=== PATIENT | female | born 1945 | race Caucasian/White ===

== ENCOUNTER → 2020-12-07 12:54 | Outpatient (CLI) | payer MEDICARE, SELFPAY ==
--- NOTE | ~2020-12-07 | DEXA_ITS ---
Bone Density Report Name: Kathy Wang Age: 75 Sex: Female Ethnicity: White Date of : 1945 Indication: osteopenia; height loss; prior fracture; hysterectomy; postmenopausal Referring Provider: SANDEEP SOLOMON Study: Bone densitometry was performed. Exam Date: December 07, 2020 Accession number: [id number] Bone Density: Region BMD T-score Z-score Classification Femoral Neck (Left) 0.728 -1.1 1.0 Osteopenia Total Hip (Left) 0.866 -0.6 1.1 Normal Femoral Neck (Right) 0.726 -1.1 1.0 Osteopenia Total Hip (Right) 0.845 -0.8 1.0 Normal Total Hip Mean 0.856 -0.7 1.1 Normal World Health Organization criteria for BMD impression classify patients as: Normal (T-score at or above -1.0), Osteopenia (T-score between -1.0 and -2.5), or Osteoporosis (T-score at or below -2.5). 10-year Fracture Risk: FRAX not reported because: Prior hip or vertebral fracture Previous Exams: Region Exam Age BMD T-score BMD Change BMD Change Date g/cm2 vs Baseline vs Previous Total Hip(Left) 12/07/2020 75 0.866 -0.6 -0.048* 0.023 05/21/2018 73 0.842 -0.8 -0.072* -0.070* 11/10/2013 68 0.912 -0.2 -0.001 -0.001 02/04/2011 65 0.914 -0.2 Total Hip(Right) 12/07/2020 75 0.845 -0.8 -0.035* 0.039* 05/21/2018 73 0.806 -1.1 -0.074* -0.083* 11/10/2013 68 0.888 -0.4 0.009 0.009 02/04/2011 65 0.880 -0.5 *Denotes significance at 95% confidence level, LSC for Total Hip = 0.027 g/cm2 Clinical Information Provided by Patient: Have had a previous hip or vertebral fracture Has had a low trauma fracture Has used the following medications: Vitamin D, Calcium Has the following medical conditions: Hysterectomy, Levothyroxine Patient maximum height was 61.5 Menopause Age: 47 No regular weight bearing exercise Does not regularly consume dairy products Drinks caffeinated beverages Onset of menses at age 14 Number of children 3 Impression: The patient has low bone mass, based on the Left Femoral Neck T-score. The patient has risk factors, including: previous fracture. No significant bone loss was observed. Discussion: INCREASED RISK OF FRACTURE DUE TO HISTORY OF FRACTURE. The patient's previous fracture puts the patient at high risk of a future fracture. In untreated patients, the risk of osteoporotic fracture increases approximately two-fold for each 1.0 SD decrease in T-score. Low bone density is not the only r
--- NOTE | ~2020-12-07 | MM_ITS ---
EXAMINATION: MM screening [facility] BI w [facility] HISTORY: Screening TECHNIQUE: Craniocaudal and mediolateral oblique 3-D tomosynthesis images were obtained and synthetic 2-D images were generated. CAD analysis was submitted and interpreted. COMPARISON: Comparison to multiple prior studies sequentially, with oldest reviewed study dated 05/2013. BREAST PARENCHYMAL COMPOSITION: There are scattered areas of fibroglandular density. FINDINGS: There is no evidence of suspicious mass, calcification, or architectural distortion to sugg est malignancy in either breast. There has been no suspicious interval change. IMPRESSION: 1. No mammographic evidence of malignancy. 2. Recommend routine screening mammography in one year. BI-RADS Category 1: Negative Reviewed, dictated and finalized at location A.
== END ==
PROVIDERS: Visit Provider Obstetrics & Gynecology
DX: Z12.31 Encounter for screening mammogram for malignant neoplasm of breast (principal); Z78.0 Asymptomatic menopausal state; M85.89 Other specified disorders of bone density and structure, multiple sites
CPT/HCPCS: 77063; 77067; 77080

== ENCOUNTER → 2022-04-25 11:46 | Outpatient (CLI) | payer MEDICARE, SELFPAY ==
--- NOTE | ~2022-04-25 | US_ITS ---
EXAMINATION: US thyroid DATE: 04/25/2022 12:08 INDICATION: Hypothyroidism, unspecified. TECHNIQUE: Multiple ultrasound images of the thyroid were obtained. COMPARISON: None. FINDINGS: The right thyroid lobe measures 4.8 x 1.9 x 1.8 cm. The left thyroid lobe measures 3.8 x 2.3 x 1.7 c m. The thyroid is diffusely hypoechoic with coarsened echotexture and increased vascularity. In the right thyroid lobe, there is a 10 mm solid, hypoechoic, wider than tall nodule with smooth margin wit hout echogenic foci (TI-RADS TR4). IMPRESSION: 1. Heterogeneous, hypervascular thyroid, consistent with chronic lymphocytic (Sallie) thyroiditis. 2. 10 mm right thyroid nodule. Thyroid ultrasound is recommended in one year. Reviewed, dictated and finalized at location A. L MECHANIC IMPRESSION: 1. Heterogeneous, hypervascular thyroid, consistent with chronic lymphocytic (H ashimoto) thyroiditis. 2. 10 mm right thyroid nodule. Thyroid ultrasound is recommended in one year.
--- NOTE | ~2022-04-25 | MM_ITS ---
EXAMINATION: MM screening [facility] BI w [facility] HISTORY: Screening mammogram TECHNIQUE: Craniocaudal and mediolateral oblique 3-D tomosynthesis images were obtained and synthetic 2-D images were generated. CAD analysis was submitted and interpreted. COMPARISON: 12/07/2020 bilateral screening mammogram 05/21/2018 bilateral screening mammogram 02/28/2016 bilateral screening mammogram BREAST PARENCHYMAL COMPOSITION: There are scattered areas of fibroglandular density. FINDINGS: There is no evidence of suspicious mass, calcification, or architectural distortion to sugg est malignancy in either breast. There has been no suspicious interval change. IMPRESSION: 1. No mammographic evidence of malignancy. 2. Recommend routine screening mammography in one year. BI-RADS Category 1: Negative Reviewed, dictated and finalized at location A. NDANT ARCADE
== END ==
PROVIDERS: PCP Internal Medicine; Visit Provider Internal Medicine
DX: Z12.31 Encounter for screening mammogram for malignant neoplasm of breast (principal); E03.9 Hypothyroidism, unspecified; E04.1 Nontoxic single thyroid nodule
CPT/HCPCS: 76536; 77063; 77067

== ENCOUNTER 2023-12-23 14:14 | Outpatient (CLI) | payer MEDICARE, SELFPAY ==
--- NOTE | ~2023-12-23 | MM_ITS ---
EXAMINATION: MM screening [facility] w [facility] HISTORY: Screening TECHNIQUE: Craniocaudal and mediolateral oblique 3-D tomosynthesis images were obtained and synthetic 2-D images were generated. CAD analysis was submitted and interpreted. COMPARISON: Comparison to multiple prior studies sequentially, with oldest reviewed study dated 12/08. BREAST PARENCHYMAL COMPOSITION: Not dense: There are scattered areas of fibroglandular density. FINDINGS: There are developing nodular asymmetries in the upper outer quadrant of both breasts. There are no suspicious calcifications. IMPRESSION: 1. Developing nodular asymmetries bilaterally. 2. Additional mammographic views and possible breast ultrasound are recommended. BI-RADS Category 0: Incomplete: Needs additional imaging evaluation. Reviewed, dictated and finalized at location B. IMPRESSION: 1. Developing nodular asymmetries bilaterally. 2. Additional mammographic views and possible breast ultrasound are recommended . BI-RADS Category 0: Incomplete: Needs additional imaging evaluation.
== END 2023-12-23 14:15 | disposition home or self-care (01) ==
LOC: MICIMG 14:15
PROVIDERS: PCP Internal Medicine; Visit Provider Internal Medicine
DX: Z12.31 Encounter for screening mammogram for malignant neoplasm of breast (principal); R92.8 Other abnormal and inconclusive findings on diagnostic imaging of breast
CPT/HCPCS: 77063; 77067

== ENCOUNTER 2024-01-19 07:37 | Outpatient (CLI) | payer MEDICARE, SELFPAY ==
--- NOTE | ~2024-01-19 | MM_ITS ---
EXAMINATION: MM diagnostic [facility] BI w [facility] HISTORY: Bilateral asymmetries TECHNIQUE: Additional 3-D tomosynthesis images of the breasts were performed and synthetic 2-D images were generated. CAD analysis was submitted and interpreted. COMPARISON: 12/23/2023, 04/25/2022, 12/07/2020 BREAST PARENCHYMAL COMPOSITION:Not Dense. There are scattered areas of fibroglandular density. FINDINGS: Spot compression views demonstrate no persistent mass lesion or distortion. No suspicious m ammographic calcifications. IMPRESSION: No mammographic evidence for malignancy. BI-RADS Category 1: Negative Reviewed, dictated and finalized at location . ITORY REPRESENTATIVE
== END 2024-01-19 07:38 | disposition home or self-care (01) ==
LOC: MICIMG 07:38
PROVIDERS: PCP Internal Medicine; Visit Provider Internal Medicine
DX: R92.8 Other abnormal and inconclusive findings on diagnostic imaging of breast (principal)
CPT/HCPCS: 77062; 77066; G0279

== ENCOUNTER 2024-11-09 10:08 | Outpatient (CLI) | payer MEDICARE, SELFPAY ==
--- OUTSIDE RECORDS SUMMARY | 2018-01-20 11:00 | XMS_ITS | Encounter Summary ---
Author Organization [facility] Healthcare Address [address] [place] [address] Care Team Providers Care Blueprint Engineer Name Role Phone Concetta Mera MD Primary Care Provide r Encounter Details Date Type Department Care Team (Late st Contact Info) Description 01/20/2018 10:00 AM [facility] Hospital Encounter [facility] ADMIT [address] [place] [address] Shlomo Hoyt MD [address] [address] Social History Tobacco Use Types Packs/Day Years Used Date Smoking Tobacco: Never Smokeless Tobacco: Never Alcohol Use Standard Drinks/Week Comments No 0 (1 standard drink = 0.6 oz pur e alcohol) OASIS D0700: Social Isolation Answer Da te Recorded Frequency of experiencing loneliness or isolatio n Never 09/07/2024 OASIS A1250: Transportation Answer Date Recorded Lack of Transportation (Medical) No 09/07/2024 Lack of Transportation (Non-Medical) No 09/07/2024 Patient Unable or Declines to Respond No 09/07/2024 OASIS B1300: Health Literacy Answer Kristofer e Recorded Frequency of needing help to read materials from doctor or pharmacy Never 09/07/2024 AUDIT-C Answer Date Recorded Q1: How often do you have a drink containing alcohol? Never 10/13/2024 Q2: How many drinks containi ng alcohol do you have on a typical day when you are drinking? Patient does not drink Q3: How often do you have si x or more drinks on one occasion? Never 10/13/2024 Personal Safety Answer Date Recorded Have you ever been in or are you currently in a harmful physical or emotional relationship or is someone making you feel afraid or unsafe? Denies 07/24/2024 Comments No Sex and Gender Information Value Date Recorded Sex Assigned at Not on file Legal Sex Female 3:57 AM PLASTIC WELDER Gender Identity Not on file Sexual Orientation Not on file documented as of this encounter Functional Status * AUDIT-C Score Answer Date of Assessment Author 0 10/13/2024 11:43 AM Nitza Hameed RN * Question Answer Date of Assessment Author Q1: How often do you have a drink containing alcohol? Never 10/13/2024 11:43 AM Kelsy Hameed RN Q2: How many drinks containing alcohol do you have on a typical day when you are drinking? Patient does not drink 10/13/2024 11:43 AM Nitza Hameed RN Q3: How often do you have six or more drinks on one occasion? Never 10/13/2024 11:43 AM Kelsy Hameed RN documented as of this encounter Plan of Treatment Not on file documented as of this encounter Procedures Procedure Name Priority Date/Time Associated Diagnosis Comments BIOPSY DEEP BONE IP Routine 01/21/2018 11:0 6 AM PLASTIC WELDER documented in this encounter Results * IR Biopsy Deep Bone (01/21/2018 11:06 AM PLASTIC WELDER) Anatomical Region Laterality Modality Body N/A Radio Fluoroscop y 01/21/2018 11:4 2 AM PLASTIC WELDER Impressions 01/21/2018 12:13 PM PLASTIC WELDER 1. T9-T10 endplates/disc biopsy under fluoroscopic guidance. The bone and soft tissue specimens were sent to microbiology and surgical pathology. Dictated by: Jani Brown M.D. Electronically signed by: Enrrique Mccormick MD, PHD Narrative 01/21/2018 12:13 PM PLASTIC WELDER EXAMINATION: T9-T10 bone/disc disc biopsy under fluoroscopic guidance HISTORY: 72 year old female with thoracic spine posterior instrumented fusion with destructive T9-T10 changes concerning for infection. ATTENDING PRESENCE: Dr. Enrrique Mccormick MD, PHD, the attending radiologist, was present from the beginning to the end of the procedure. SEDATION: Conscious sedation was administered under the attending physician's direction and continuous monitoring by a trained nurse specialist who was independent from those actually performing the procedure. Total monitored sedation time was 35 minutes. During the course of the procedure, the patient received Fentanyl 100 mcg and Versed 2 mg IV. TECHNIQUE: The risks, benefits and alternatives were discussed and informed consent was obtained. Prior to beginning the procedure, Rowland Protocol was performed to confirm the patient's identity and the planned procedure. Sterile barriers used during the procedure included cap, mask, hand hygiene, sterile gloves, and sterile drape. Chloraprep was used for cutaneous antisepsis. The patient was placed supine on the fluoroscopy table. The biopsy site was localized with fluoroscopy. A 10 mL of a 1:1 mixture of 0.25% bupivacaine and 1% lidocaine was injected for subcutaneous and periosteal anesthesia. An 10-gauge/12-gauge On-Control coaxial biopsy needle was inserted into the T10 vertebral body via a right transpedicular approach utilizing fluoroscopic guidance. Appropriate needle position was confirmed with fluoroscopy. Two bone specimens of 1-2 cm in length were obtained. Subsequently a Bard 14-gauge soft tissue biopsy needle was advanced into T9-T10 bone/disc space with four 1-2 cm soft tissue specimens obtained. The needle was removed and the skin was cleansed with hydrogen peroxide. Dermabond was placed at the needle entry site. There were no complications of the procedure. ESTIMATED BLOOD LOSS: None CONDITION: Stable condition. DISCHARGED TO: Patient Care Division FINDINGS: Fluoroscopic imaging demonstrates thoracic posterior instrumented fusion with the bone and soft tissue biopsy needles in appropriate needle position. Procedure Note Enrrique Mccormick MD PhD - 01/21/2018 EXAMINATION: T9-T10 bone/disc disc biopsy under fluoroscopic guidance HISTORY: 72 year old female with thoracic spine posterior instrumented fusion with destructive T9-T10 changes concerning for infection. ATTENDING PRESENCE: Dr. Enrrique Mccormick MD, PHD, the attending radiologist, was present from the beginning to the end of the procedure. SEDATION: Conscious sedation was administered under the attending physician's direction and continuous monitoring by a trained nurse specialist who was independent from those actually performing the procedure. Total monitored sedation time was 35 minutes. During the course of the procedure, the patient received Fentanyl 100 mcg and Versed 2 mg IV. TECHNIQUE: The risks, benefits and alternatives were discussed and informed consent was obtained. Prior to beginning the procedure, Rowland Protocol was performed to confirm the patient's identity and the planned procedure. Sterile barriers used during the procedure included cap, mask, hand hygiene, sterile gloves, and sterile drape. Chloraprep was used for cutaneous antisepsis. The patient was placed supine on the fluoroscopy table. The biopsy site was localized with fluoroscopy. A 10 mL of a 1:1 mixture of 0.25% bupivacaine and 1% lidocaine was injected for subcutaneous and periosteal anesthesia. An 10-gauge/12-gauge On-Control coaxial biopsy needle was inserted into the T10 vertebral body via a right transpedicular approach utilizing fluoroscopic guidance. Appropriate needle position was confirmed with fluoroscopy. Two bone specimens of 1-2 cm in length were obtained. Subsequently a Bard 14-gauge soft tissue biopsy needle was advanced into T9-T10 bone/disc space with four 1-2 cm soft tissue specimens obtained. The needle was removed and the skin was cleansed with hydrogen peroxide. Dermabond was placed at the needle entry site. There were no complications of the procedure. ESTIMATED BLOOD LOSS: None CONDITION: Stable condition. DISCHARGED TO: Patient Care Division FINDINGS: Fluoroscopic imaging demonstrates thoracic posterior instrumented fusion with the bone and soft tissue biopsy needles in appropriate needle position. IMPRESSION: 1. T9-T10 endplates/disc biopsy under fluoroscopic guidance. The bone and soft tissue specimens were sent to microbiology and surgical pathology. Dictated by: Jani Brown M.D. Electronically signed by: Enrrique Mccormick MD, PHD [facility] Pedro Hoyt MD IMG IR PROCEDURES Final Re sult documented in this encounter Visit Diagnoses Not on filedocumented in this encounter Care Teams Blueprint Engineer Relationship Specialty Start Date End Date Concetta Mera MD [address] [address] PCP - General Internal Medicine 12/31/17 documented as of this encounter
--- NOTE | ~2024-11-09 | DEXA_ITS ---
Bone Density Report Name: ALYX CHRISTIAN Age: 79 Sex: Female Ethnicity: White Date of : 1945 Indication: postmenopausal; screening for osteoporosis; height loss; prior fracture; hysterectomy; Referring Provider: JOSE, ARIADNA Study: Bone densitometry was performed. Exam Date: November 09, 2024 Accession number: [id number] Bone Density: Region BMD T-score Z-score Classification Femoral Neck (Left) 0.708 -1.3 1.0 Osteopenia Total Hip (Left) 0.860 -0.7 1.3 Normal Femoral Neck (Right) 0.698 -1.4 0.9 Osteopenia Total Hip (Right) 0.799 -1.2 0.8 Osteopenia Total Hip Mean 0.829 -1.0 1.1 Normal World Health Organization criteria for BMD impression classify patients as: Normal (T-score at or above -1.0), Osteopenia (T-score between -1.0 and -2.5), or Osteoporosis (T-score at or below -2.5). 10-year Fracture Risk: FRAX not reported because: Prior hip or vertebral fracture Clinical Information Provided by Patient: Have had a previous hip or vertebral fracture Has had a low trauma fracture Has used the following medications: Vitamin D, Calcium Has the following medical conditions: Hysterectomy Patient maximum height was 61.5 Menopause Age: 49 No regular weight bearing exercise Does not regularly consume dairy products Drinks caffeinated beverages Onset of menses at age 15 Number of children 3 Impression: The patient has low bone mass, based on the Right Femoral Neck T-score. The patient has risk factors, including: previous fracture. Discussion: INCREASED RISK OF FRACTURE DUE TO HISTORY OF FRACTURE. The patient's previous fracture puts the patient at high risk of a future fracture. In untreated patients, the risk of osteoporotic fracture increases approximately two-fold for each 1.0 SD decrease in T-score. Low bone density is not the only risk factor for fracture; also consider factors such as patient's age, frailty or poor health, risk of falling, risk of injury, previous osteoporotic fracture, family history of osteoporosis, cigarette smoking, low body weight, etc. Not everyone with a low trauma fracture has osteoporosis; osteomalacia and other metabolic bone disorders should also be considered. Patients who have osteoporosis should be evaluated for specific diseases and conditions (secondary causes) that may cause or contribute to bone loss and fracture risk. National Osteoporosis Foundation (NOF) recommends pharmacologic intervention for patients with a prior hip or vertebral fracture regardless of BMD T-score. The patient should follow a healthful lifestyle (good nutrition with adequate calcium and vitamin D, and appropriate weight-bearing exercise). Follow-Up: Consider a repeat BMD and Vertebral Fracture Assessment (VFA) exam in 2 years or sooner if medically necessary, to reassess this patient's status. Reported by: KOREY on 11/09/2024 2:33:00 PM. Reviewed, dictated and finalized at location A.
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
--- OUTSIDE RECORDS SUMMARY | 2024-11-09 10:38 | XMS_ITS | Clinical Summary ---
Author Organization [facility] Address [address] [place] [address] Care Team Providers Care Meat Boner Name Role Phone Concetta Mera MD Primary Care Provide r Efraín Garcia MD Unavailable [phone] Allergies Active Allergy Reactions Criticality Noted Date Comments Sulfa (Sulfonamide Antibiotics) Rash Medium Sulfasalazine Itching Low 05/17/2009 Medications ferrous sulfate 325 mg (65 mg of elemental iron) tabletIndicatio ns:Iron Deficiency Anemia Take 65 mg of elemental iron by mouth every morning Active sertraline (ZOLOFT) 25 mg tabletIndicatio ns:depression Take 25 mg by mouth every morning Active rosuvastatin (CRESTOR) 20 mg tabletIndicatio ns:hyperlipidem ia Take 20 mg by mouth every morning Active telmisartan (MICARDIS) 80 mg tabletIndicatio ns:hypertension Take 80 mg by mouth every morning Active ergocalciferol (VITAMIN D) 50,000 unit capsuleIndicati ons:Vitamin D Deficiency Take 50,000 Units by mouth every 2 (two) weeks 2 Active acetaminophen (TYLENOL) 500 mg tabletIndicatio ns:Pain Take 2 tablets (1,000 mg total) by mouth every 8 (eight) hours as needed for pain 60 tablet 5 Active baclofen (LIORESAL) 10 mg tabletIndicatio ns:Muscle Spasticity of Spinal Origin Take 1 tablet (10 mg total) by mouth 3 (three) times a day for 10 days 30 tablet 5 Active ibuprofen (ADVIL,MOTRIN) 600 mg tabletIndicatio ns:Anti-inflamm atory Take 1 tablet (600 mg total) by mouth every 8 (eight) hours as needed for pain 30 tablet 5 Active lidocaine (ASPERCREME) 4 % adhesive patch,medicated Indications:Pos therpetic Neuralgia Place 1 patch on the skin daily for 12 hours 15 patch 5 Active polyethylene glycol (MIRALAX) 17 gram packetIndicatio ns:constipation Take 1 packet (17 g total) by mouth daily 30 packet 5 Active senna-docusate (PERICOLACE) 8.6-50 mgIndications:c onstipation Take 1 tablet by mouth 2 (two) times a day 30 tablet 5 Active oxyCODONE (ROXICODONE) 5 mg immediate release tabletIndicatio ns:Pain Take 1 tablet (5 mg total) by mouth every 4 (four) hours as needed for pain 20 tablet 5 Active ondansetron (ZOFRAN) 4 mg tabletIndicatio ns:nausea Take 1 tablet (4 mg total) by mouth 4 (four) times a day as needed for nausea 20 tablet 5 Active calcium carb,gluc/mag gluc,ox (CALCIUM MAGNESIUM ORAL)Indication s:health Take 1 tablet by mouth daily. calcium 1000 mg, magnesium 400mg, zinc 15mg, vitamin d 15mcg Indications: health Active esomeprazole DR (NexIUM) 20 mg capsuleIndicati ons:Stress Ulcer Prophylaxis Take 20 mg by mouth daily. Indications: Stress Ulcer Prophylaxis Active levothyroxine (SYNTHROID) 50 mcg tabletIndicatio ns:hypothyroidi sm Take 50 mcg by mouth daily. Indications: a condition with low thyroid hormone levels Active cyanocobalamin (Vitamin B-12) 1,000 mcg tabletIndicatio ns:Prevention of Vitamin B12 Deficiency Take 1,000 mcg by mouth daily. Indications: prevention of vitamin B12 deficiency Active baclofen (LIORESAL) 10 mg tabletIndicatio ns:Muscle Spasticity of Spinal Origin Take 10 mg by mouth 3 (three) times a day. rx [id number] Indications: muscle spasms caused by a spinal disease Active ALPRAZolam (XANAX) 0.25 mg tablet Take 1 tablet (0.25 mg total) by mouth 3 (three) times a day as needed Active gabapentin (NEURONTIN) 600 mg tablet Take by mouth 3 (three) times a day 5 Active gabapentin ER (GRALISE) 300 mg tablet extended release 24 hrIndications:N europathic Pain Take 300 mg by mouth 2 (two) times a day 025 Discontin ued(Alter constance therapy) Active Problems Problem Noted Date Diagnosed Date [...] 07/25: Non-op, diet restarted, DVT ppx - Hartley J at all times - Follow up with [...] (01/26/2018): Added automatically from request for surgery [id number] Fx dorsal vertebra-closed 01/26/2018 Overview (01/26/2018): Added automatically from request for surgery [id number] Hypokalemia 10/12/2017 Assessment & Plan (10/12/2017 10:17 [...] consulted as her Na was 121 on 10/10 morning. - Likely cause of Hyponatremia is [...] (09/08/2017): Added automatically from request for surgery [id number] Intervertebral disc disorder with myelopathy, thoracic region 09/08/2017 Overview (09/08/2017): Added automatically from request for surgery [id number] Adjacent segment disease with spinal stenosis Overview (09/08/2017): Added automatically from request for surgery [id number] Closed T10 spinal fracture 09/08/2017 Overview (09/08/2017): Added automatically from request for surgery [id number] Vitamin D deficiency 09/03/2016 Anemia 07/31/2016 History of arthrodesis 06/21/2016 Scar 01/06/2013 Basal cell carcinoma (BCC) of skin of lip 2012 Encounters Date Type Department Care Team Description 10/13/2024 11:20 AM CDT Office Visit [facility] Orth[facility] [address] [place] [address] Medical Office Building [address] [place] [address] Efraín Garcia MD Cervical spine pain (Primary Dx); Closed fracture of cervical vertebra, unspecified cervical vertebral level, subsequent encounter 10/13/2024 10:46 AM CDT - 10/13/2024 11:59 PM CDT Hospital Encounter [facility] [address] [place] [address] [address] [place] [address] Cervical spine pain Discharge Disposition: Discharge to home or self care 09/07/2024 10:30 AM CDT Home Care Visit [address] [place] [address] Brian Posadas, PT PT OASIS DISCHARGE 09/07/2024 Home Care Visit [address] [place] [address] Brian Posadas, PT CASE COMMUNICATION 08/31/2024 12:30 PM CDT Home Care Visit [address] [place] [address] Brian Posadas, PT PT REASSESSMENT 08/30/2024 10:00 AM CDT Office Visit [facility] [address] [facility] Medical Office Building [address] [place] [address] Efraín Garcia MD Cervical spine pain (Primary Dx) 08/30/2024 9:30 AM CDT - 08/30/2024 11:59 PM CDT Hospital Encounter [facility] [address] [facility] [address] [place] [address] Cervical spine pain Discharge Disposition: Discharge to home or self care 08/27/2024 Home Care Visit [address] [place] [address] Brianda Daniel, OT TELEPHONE ENCOUNTER 08/26/2024 10:00 AM CDT Home Care Visit [address] [place] [address] Brianda Daniel, OT OT DISCIPLINE DISCHARGE 08/25/2024 3:30 PM CDT Home Care Visit [address] [place] [address] Lenore Barron COTA OT HOME VISIT 08/24/2024 11:00 AM CDT Home Care Visit [address] [place] [address] Brian Posadas, PT PT HOME VISIT 08/20/2024 12:45 PM CDT Home Care Visit [address] [place] [address] Lenore Barron COTA OT HOME VISIT 08/19/2024 11:30 AM CDT Home Care Visit [address] [place] [address] Brian Posadas, PT PT HOME VISIT 08/18/2024 11:00 AM CDT Home Care Visit [address] [place] [address] Lenore Barron COTA OT HOME VISIT 08/17/2024 11:30 AM CDT Home Care Visit [address] [place] [address] Brian Posadas, PT PT HOME VISIT 08/15/2024 Home Care Visit [address] [place] [address] Víctor Hatch LCSW CASE COMMUNICATION 08/13/2024 11:30 AM CDT Home Care Visit [address] [place] [address] Lenore Barron COTA OT HOME VISIT 08/12/2024 1:00 PM CDT Home Care Visit [address] [place] [address] Brian Posadas, PT PT HOME VISIT 08/11/2024 2:00 PM CDT Home Care Visit [address] [place] [address] Víctor Hatch LCSW 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 Orth[facility] [address] [place] [address] Medical Office Building [address] [place] [address] Efraín Garcia MD Cervical spine pain (Primary Dx) 08/11/2024 9:15 AM CDT - 08/11/2024 11:59 PM CDT Hospital Encounter [facility] [address] [place] [address] [address] [place] [address] Cervical spine pain Discharge Disposition: Discharge to home or self care 08/11/2024 Home Care Visit [address] [place] [address] Víctor Hatch LCSW GYMNASTIC TEACHER DISCIPLINE DISCHARGE 08/10/2024 1:15 PM CDT Home Care Visit [address] [place] [address] Lenore Barron COTA OT HOME VISIT 08/10/2024 12:30 PM CDT Home Care Visit [address] [place] [address] Brian Posadas, PT PT HOME VISIT 08/10/2024 Home Care Visit [address] [place] [address] Víctor Hatch, [facility] CASE COMMUNICATION 08/10/2024 Telephone [facility] [address] [place] [address] Timothy Hill, ROBYN from Last 3 Months Immunizations Immunization Administration Dates Next Due COVID-19 mRNA ([employer]) 0.3 m L (30 mcg) vaccine (12 years and up) 03/12/2023 Influenza Virus Vaccine Trivalent Mdv 01/08/2024 Influenza, Quadrivalent, Hig h Dose, Preservative Free, Intrr 12/23/2022,12/11/2021,01/11/2021 Influenza, Quadrivalent, Spl it, Preservative Free, Intramuscular 12/22/2014 Influenza, Trivalent, High D ose, Split, Preservative Free, Intramuscular 02/02/2020,12/14/2018,01/12/2018,01/10,02/23/2014 Influenza, Trivalent, IM (MDV) 01/06/2013 Moderna SARS-CoV-2 Monovalen t Vaccination (12+ YRS) 05/08/2020 Pneumococcal Conjugate PCV 13 12/22/2014 RSV Vaccine, Pref, Recombina nt, Subunit, Adjuvanted, PF, IM (Arexvy) 03/06/2023 Tdap 12/05/2017 ZOSTER LIVE 08/04/2014 Surgical History Surgery Date Site/Laterality Comments BACK SURGERY MOHS SURGERY NECK SURGERY ESOPHAGOGASTRODUODENOSCOPY HYSTERECTOMY CERVICAL SPINE SURGERY CENTRAL LINE PLACEMENT > 5 YEARS 10/06/2017 N/A BIOPSY DEEP BONE 01/21/2018 N/A CENTRAL LINE PLACEMENT > 5 YEARS 03/05/2018 N/A FLUORO GUIDED INJECTION SHOULDER LEFT 06/21/2021 Lef t Medical History Medical History Date Comments History of other malignant n eoplasm of skin Carcinoma Of The Skin - (Add ed by TW Conv) Scoliosis GERD (gastroesophageal reflux disease) Spinal stenosis Spinal stenosis, multilevel PONV (postoperative nausea and vomiting) Hypertension History of transfusion september 2017 Family History Medical History Relation Name Comments Lung cancer Father Diabetes Mother Stroke Mother Relation Name Status Comments Father Mother Social History Tobacco Use Types Packs/Day Years [...] on file 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 Gender Identity Not on file Sexual Orientation Not on file Obstetrics History Last Filed Vital Signs Vital Sign Reading Time Taken Comments Blood Pressure 155/88 09/07/2024 11:06 AM CDT Pulse 72 09/07/2024 11:06 AM CDT Temperature 36.5 C (97.7 F) 09/07/2024 11:06 AM CDT Respiratory Rate 18 09/07/2024 11:06 AM CDT Oxygen Saturation 98% 09/07/2024 11:06 AM CDT Inhaled Oxygen Concentration - - Weight 64.9 kg (143 lb) 07/29/2024 2:53 PM CDT Height 144.8 cm (4' 9) 07/29/2024 2:53 PM CDT Body Mass Index 30.94 07/29/2024 2:53 PM CDT Plan of Treatment Health Maintenance Due Date Last Done Comments Depression Screening 1945 Hepatitis C Screening 1945 Osteoporosis Screening-Bone Density Scan 1945 Hepatitis B Screening 02/29/1964 Well Visit 65+ 2011 Zoster Vaccine (2 of 3) 09/29/2014 08/04/2014 Pneumococcal vaccine 65+ (2 of 2 - PCV20 or PCV21) 12/23/2015 12/22/2014 Covid-19 Vaccine (2023-2 5 season) 2023 03/12/2023, 03/08/2021, 05/12/2020, Additional history exists Influenza Vaccine (#1) 2024 , 12/23/2022, 12/11/2021, Additional history exists Fall Risk Assessment 07/28/2025 07/28/2024 DTaP/Tdap/Td Vaccine (2 - Td or Tdap) 12/06/2027 12/05/2017 Medical Devices Implanted Type Area Optician Manager Device Identifier Shelf Expiration Date Model / Serial / Lot Musculoskeleta l Transplant [id number] [id number] Frozen Spine 7d Lordotic Trapezoid Spacer Allograft - [id number] - [id number] Implanted:Qty: 1 on 03/06/2018 by Shlomo Hoyt MD at [facility] Bone N/A: Spine Cervical Musculoskeletal Transplant 10/18/2021 [id number] / [id number] / Musculoskeleta l Transplant [id number] 12.2i65m5at Frozen Spine 7d Lordotic Trapezoid Spacer Allograft - [id number] - [id number] Implanted:Qty: 1 on 03/06/2018 by Shlomo Hoyt MD at [facility] Bone N/A: Spine Cervical Musculoskeletal Transplant 06/08/2022 [id number] / [id number] / Musculoskeleta l Transplant [id number] 12.5q67r8ej Frozen Spine 7d Lordotic Trapezoid Spacer Allograft - [id number] - [id number] Implanted:Qty: 1 on 03/06/2018 by Shlomo Hoyt MD at [facility] Bone N/A: Spine Cervical Musculoskeletal Transplant 05/04/2022 [id number] / [id number] / Medtronic Inc [id number] Vertex 3.5-5.5mm Taper Mina Spinal Ccm Plus - [id number] Implanted:Qty: 2 on 10/07/2017 by Shlomo Hoyt MD at [facility] Other - see comments N/A: Spine Cervical Medtronic Inc [id number] / / Description:CC Taperel Mina Medtronic Spinal Graft [id number] Jerman Axial Spine Cl5.5 Op5.5 Curve Connector Mina Titanium - [id number] Implanted:Qty: 2 on 10/07/2017 by Shlomo Hoyt MD at [facility] Other - see comments N/A: Spine Cervical Medtronic Spinal Graft [id number] / / Description:Axial D Medtronic Inc [id number] Longitude Ii 5.5mm 500mm Straight Mina Spinal Cocr Molybdenum - [id number] Implanted:Qty: 1 on 10/07/2017 by Shlomo Hoyt MD at [facility] Other - see comments N/A: Spine Cervical Medtronic Inc [id number] / / Description:mina Medtronic Sofamor [place] [id number] Jerman Solid Spine Sd5.5 Curve Connector Mina Titanium - [id number] Implanted:Qty: 2 on 10/07/2017 by Shlomo Hoyt MD at [facility] Other - see comments N/A: Spine Cervical Medtronic Sofamor [place] [id number] / / Description:mpc jerman [place] Implanted:Qty: 1 on 10/07/2017 by Shlomo Hoyt MD at [facility] Other - see comments N/A: Spine Cervical Medtronic Sofamor Dane[place] Medtronic Sofamor Danek [id number] Solera Cd Horizon 5.5mm 40mm Multiaxial Spine Screw Bone Cocr - [id number] Implanted:Qty: 12 on 10/07/2017 by Shlomo Hoyt MD at [facility] Screw N/A: Spine Cervical Medtronic Sofamor [place] [id number] / / Medtronic Sofamor [place] [id number] Solera Cd Horizon 5.5mm 35mm Multiaxial Spine Screw Bone Cocr - [id number] Implanted:Qty: 3 on 10/07/2017 by Shlomo Hoyt MD at [facility] Screw N/A: Spine Cervical Medtronic Sofamor [place] [id number] / / Medtronic Sofamor [place] [id number] Solera Cd Horizon 5.5mm 30mm Multiaxial Spine Screw Bone Cocr - [id number] Implanted:Qty: 3 on 10/07/2017 by Shlomo Hoyt MD at [facility] Screw N/A: Spine Cervical Medtronic Sofamor [place] [id number] / / Infinity Screw 3.5 X 16 Implanted:Qty: 4 on 10/07/2017 by Shlomo Hoyt MD at [facility] Screw N/A: Spine Cervical Medtronic Medtronic Sofamor [place] [id number] Cd Horizon Break Off Spinal Screw Set Titanium Nonsterile 5.5 Mm - [id number] Implanted:Qty: 21 on 10/07/2017 by Shlomo Hoyt MD at [facility] Screw N/A: Spine Cervical Medtronic Sofamor [place] [id number] / / Medtronic Sofamor [place] [id number] .25in Cap Spine Standard 32 Thread Screw Set - [id number] Implanted:Qty: 6 on 10/07/2017 by Shlomo Hoyt MD at [facility] Screw N/A: Spine Cervical Medtronic Sofamor [place] [id number] / / Medtronic Sofamor [place] [id number] Legacy Cd Horizon Breakoff Spine Pedicle Reverse Angle Screw Set - [id number] Implanted:Qty: 2 on 10/07/2017 by Shlomo Hoyt MD at [facility] Screw N/A: Spine Cervical Medtronic Sofamor [place] [id number] / / Infinity Set Screw Implanted:Qty: 4 on 10/07/2017 by Shlomo Hoyt MD at [facility] Screw N/A: Spine Cervical Medtronic Sofamor [place] Hardware Spine Lumbar Medtronic Sofamor [place] [id number] Mastergraft Block Void Filler Substitute 20ml Bone Graft Matrix - [id number] Implanted:Qty: 1 on 10/07/2017 by Shlomo Hoyt MD at [facility] Medtronic Sofamor [place] [id number] 08/07/2020 [id number] / / [id number] Medtronic Sofamor [place] [id number] Infuse 18mm 26mm Absorbable Sponge Sterile Water Syringe Needle - [id number] Implanted:Qty: 1 on 10/07/2017 by Shlomo Hoyt MD at [facility] Medtronic Sofamor [place]anek 09/07/2018 [id number] / / [id number] Medtronic Sofamor [place] [id number] Infuse 18mm 26mm Absorbable Sponge Sterile Water Syringe Needle - [id number] Implanted:Qty: 1 on 10/07/2017 by Shlomo Hoyt MD at [facility] Medtronic Sofamor Danek 09/07/2018 [id number] / / [id number] Medtronic Sofamor [place] [id number] Infuse 18mm 26mm Absorbable Sponge Sterile Water Syringe Needle - [id number] Implanted:Qty: 1 on 10/07/2017 by Shlomo Hoyt MD at [facility] Medtronic Sofamor Danek 09/07/2018 [id number] / / [id number] Medtronic Sofamor [place] [id number] Mastergraft Matrix Block Extension Void Filler Substitute 10ml - [id number] Implanted:Qty: 1 on 10/07/2017 by Shlomo Hoyt MD at [facility] Medtronic Sofamor [place] [id number] 04/09/2020 [id number] / / [id number] Acupac Advanced 50cc Implanted:Qty: 1 on 10/07/2017 by Shlomo Hoyt MD at [facility] [employer] 08/28/2022 / / [id number] Medtronic Sofamor [place] [id number] Mastergraft Matrix Block Extension Void Filler Substitute 10ml - [id number] Implanted:Qty: 1 on 03/06/2018 by Shlomo Hoyt MD at [facility] N/A: Spine Cervical Medtronic Sofamor [place] [id number] 04/09/2020 [id number] / / [id number] Medtronic Sofamor [place] [id number] 3.5mm 16mm Multiaxial Spine Screw Bone - [id number] Implanted:Qty: 5 on 03/06/2018 by Shlomo Hoyt MD at [facility] N/A: Spine Cervical Medtronic Sofamor [place] [id number] / / Medtronic Sofamor [place] [id number] 3.5mm 20mm Multiaxial Spine Screw Bone - [id number] Implanted:Qty: 1 on 03/06/2018 by Shlomo Hoyt MD at [facility] N/A: Spine Cervical Medtronic Sofamor [place] [id number] / / Medtronic Sofamor [place] [id number] 3.5mm 24mm Multiaxial Spine Screw Bone - [id number] Implanted:Qty: 1 on 03/06/2018 by Shlomo Hoyt MD at [facility] N/A: Spine Cervical Medtronic Sofamor Danek [id number] / / Medtronic Sofamor [place] [id number] 4mm 14mm Multiaxial Spine Screw Bone - [id number] Implanted:Qty: 1 on 03/06/2018 by Shlomo Hoyt MD at [facility] N/A: Spine Cervical Medtronic Sofamor [place] [id number] / / Medtronic Sofamor [place]ane[place] [id number] Spine Standard Screw Set - [id number] Implanted:Qty: 8 on 03/06/2018 by Shlomo Hoyt MD at [facility] N/A: Spine Cervical Medtronic Sofamor [place] [id number] / / Mina Spinal 3.5mm Chromaloy Plus 300mm - [id number] Implanted:Qty: 2 on 03/06/2018 by Shlomo Hoyt MD at [facility] N/A: Spine Cervical Medtronic Inc [id number] / / Cnctr Mina [place] Offset Spine 3.5-5.5/6mm Mina - [id number] Implanted:Qty: 1 on 03/06/2018 by Shlomo Hoyt MD at [facility] N/A: Spine Cervical Medtronic Sofamor [place] [id number] / / Medtronic Sofamor [place]ane[place] [id number] Flat Connector Spine Screw Set - [id number] Implanted:Qty: 1 on 03/06/2018 by Shlomo Hoyt MD at [facility] N/A: Spine Cervical Medtronic Sofamor Dane[place] [id number] / / Medtronic Sofamor Danek [id number] 4mm 12mm Multiaxial Spine Screw Bone - [id number] Implanted:Qty: 1 on 03/06/2018 by Shlomo Hoyt MD at [facility] N/A: Spine Cervical Medtronic Sofamor [place]ane[place] [id number] / / Cnctr Mina [place] Offset Spine 3.5/5.5mm Mina - [id number] Implanted:Qty: 2 on 03/06/2018 by Shlomo Hoyt MD at [facility] N/A: Spine Cervical Medtronic Sofamor [place]ane[place] [id number] / / Cnctr Mina [place] Offset Spine 5.5/6/6.35mm Mina - [id number] Implanted:Qty: 2 on 03/06/2018 by Shlomo Hoyt MD at [facility] N/A: Spine Cervical Medtronic Sofamor Danek [id number] / / Musculoskeleta l Transplant [id number] 12.5a67d7ps Frozen Spine 7d Lordotic Trapezoid Spacer Allograft - [id number] - [id number] Implanted:Qty: 1 on 03/06/2018 by Shlomo Hoyt MD at [facility] N/A: Spine Cervical Musculoskeletal Transplant 10/18/2021 [id number] / [id number] / Medtronic Sofamor Danek [id number] Infuse 18mm 26mm Absorbable Sponge Sterile Water Syringe Needle - [id number] Implanted:Qty: 1 on 03/06/2018 by Shlomo Hoyt MD at [facility] N/A: Spine Cervical Medtronic Sofamor Danek 09/07/2018 [id number] / / [id number] Procedures Procedure Name Priority Date/Time Associated Diagnosis Comments XR SPINE CERVICAL COMPLETE 4 OR 5 VW Schedule Routine, Read Routine (OP Routine) 10/13/2024 12:03 PM CDT Cervical spine pain XR SPINE CERVICAL 2 OR 3 VIEWS Schedule Routine, Read Routine (OP Routine) 08/30/2024 10:17 AM CDT Cervical spine pain XR SPINE CERVICAL 2 OR 3 VIEWS Schedule Routine, Read Routine (OP Routine) 08/11/2024 9:57 AM CDT Cervical spine pain from Last 3 Months Results * XR Spine Cervical Complete 4 or 5 Views (10/13/2024 12:03 PM CDT) Anatomical Region Laterality Modality Spine N/A Computed Radiogr aphy 10/13/2024 3:26 PM CDT Impressions 10/13/2024 4:09 PM CDT 1. Unchanged posterior decompression and instrumented spinal fusion of C2 to the thoracic spine extending outside the jzxel-ym-pcoe with combined anterior fusion of C2-T2. 2. Unchanged C3 anterior superior endplate fracture. Dictated by: Raisa Antonio MD The radiology attending physician has personally reviewed this study, and had reviewed and/or edited this written report and agrees with it. Electronically signed by: Rowdy Momin M.D. Narrative 10/13/2024 4:09 PM CDT EXAMINATION: XR SPINE CERVICAL COMPLETE 4 OR 5 VW HISTORY: Neck pain and spinal fusion FINDINGS: 5 radiographs of the cervical spine are submitted. Comparison is made to cervical spine radiograph dated 08/30/[address] dated 07/24/2024. There is unchanged posterior decompression and instrumented spinal fusion of C2 to the thoracic spine which is outside the khtpb-fr-fbdf with combined anterior fusion of C2-T2. The instrumentation is intact. There is no abnormal motion of the fused segments. There is an unchanged C3 anterior superior endplate fracture. The C2 fracture is better appreciated on the prior cervical spine CT. The lateral masses of C1 are normally aligned with respect to the dens. There is no new acute displaced fracture. There is no prevertebral soft tissue swelling. Procedure Note Rowdy Momin MD - 10/13/2024 EXAMINATION: XR SPINE CERVICAL COMPLETE 4 OR 5 VW HISTORY: Neck pain and spinal fusion FINDINGS: 5 radiographs of the cervical spine are submitted. Comparison is made to cervical spine radiograph dated 08/30/[address] dated 07/24/2024. There is unchanged posterior decompression and instrumented spinal fusion of C2 to the thoracic spine which is outside the vraae-mz-bmvd with combined anterior fusion of C2-T2. The instrumentation is intact. There is no abnormal motion of the fused segments. There is an unchanged C3 anterior superior endplate fracture. The C2 fracture is better appreciated on the prior cervical spine CT. The lateral masses of C1 are normally aligned with respect to the dens. There is no new acute displaced fracture. There is no prevertebral soft tissue swelling. IMPRESSION: 1. Unchanged posterior decompression and instrumented spinal fusion of C2 to the thoracic spine extending outside the ogtnq-ma-uztr with combined anterior fusion of C2-T2. 2. Unchanged C3 anterior superior endplate fracture. Dictated by: Raisa Antonio MD The radiology attending physician has personally reviewed this study, and had reviewed and/or edited this written report and agrees with it. Electronically signed by: Rowdy Momin M.D. Efraín Garcia MD IMG XR PROCEDURES Fi nal Result * XR Spine Cervical 2 or 3 Views (08/30/2024 10:17 AM CDT) Anatomical Region Laterality Modality Spine N/A Computed Radiogr aphy 08/30/2024 11:4 9 AM CDT Impressions 08/30/2024 12:09 PM CDT 1. Unchanged spinal fusion from C2 to thoracic spine extending outside the [id number], as above. Dictated by: eSymour Vergara M.D. The radiology attending physician has personally reviewed this study, and had reviewed and/or edited this written report and agrees with it. Electronically signed by: Zaire Nguyen M.D. Narrative 08/30/2024 12:09 PM CDT EXAMINATION: XR SPINE CERVICAL 2 OR 3 VIEWS HISTORY: C2 fracture follow-up FINDINGS: 4 cervical spine radiographs are submitted with comparison to 08/11/2024. Previously noted C2 and C3 fractures are better evaluated on prior cross-sectional imaging. There is unchanged posterior fusion and decompression from C2 through the thoracic spine outside the [id number]. There is combined anterior discectomy and fusion at C3-T1 with osseous fusion at multiple levels. Instrumentation appears intact. There are no new acute fractures. No prevertebral soft tissue swelling. Carotid atherosclerosis is noted. Procedure Note aZire Nguyen MD PhD - 08/30/2024 EXAMINATION: XR SPINE CERVICAL 2 OR 3 VIEWS HISTORY: C2 fracture follow-up FINDINGS: 4 cervical spine radiographs are submitted with comparison to 08/11/2024. Previously noted C2 and C3 fractures are better evaluated on prior cross-sectional imaging. There is unchanged posterior fusion and decompression from C2 through the thoracic spine outside the [id number]. There is combined anterior discectomy and fusion at C3-T1 with osseous fusion at multiple levels. Instrumentation appears intact. There are no new acute fractures. No prevertebral soft tissue swelling. Carotid atherosclerosis is noted. IMPRESSION: 1. Unchanged spinal fusion from C2 to thoracic spine extending outside the [id number], as above. Dictated by: Seymour Vergara M.D. The radiology attending physician has personally reviewed this study, and had reviewed and/or edited this written report and agrees with it. Electronically signed by: Zaire Nguyen M.D. Efraín Garcia MD IMG XR PROCEDURES Fi nal Result * XR Spine Cervical 2 or 3 Views (08/11/2024 9:57 AM CDT) Anatomical Region Laterality Modality Spine N/A Computed Radiogr aphy 08/11/2024 10:1 7 AM CDT Impressions 08/11/2024 10:17 AM CDT Unchanged instrumented posterior spinal fusion and posterior decompression of C2 through the thoracic spine, extending below the field of view, combined with anterior discectomy and instrumented fusion of C3-T1. Electronically signed by: Nick Ruiz MD [facility] 08/11/2024 10:17 AM CDT EXAMINATION: XR SPINE CERVICAL 2 OR 3 VIEWS HISTORY: C2 and C3 fracture FINDINGS: Comparison dated 07/25/2024. The known C2 and C3 fractures are better seen on prior cross-sectional imaging. Unchanged instrumented posterior spinal fusion and posterior decompression of C2 through the thoracic spine, extending below the field of view. This is combined with anterior discectomy and instrumented fusion of C3-T1. Unchanged asymmetric atlantodental intervals. No new fracture. Mild prevertebral soft tissue swelling. The patient is edentulous. Vascular calcifications. Procedure Note Nick Ruiz MD - 08/11/2024 EXAMINATION: XR SPINE CERVICAL 2 OR 3 VIEWS HISTORY: C2 and C3 fracture FINDINGS: Comparison dated 07/25/2024. The known C2 and C3 fractures are better seen on prior cross-sectional imaging. Unchanged instrumented posterior spinal fusion and posterior decompression of C2 through the thoracic spine, extending below the field of view. This is combined with anterior discectomy and instrumented fusion of C3-T1. Unchanged asymmetric atlantodental intervals. No new fracture. Mild prevertebral soft tissue swelling. The patient is edentulous. Vascular calcifications. IMPRESSION: Unchanged instrumented posterior spinal fusion and posterior decompression of C2 through the thoracic spine, extending below the field of view, combined with anterior discectomy and instrumented fusion of C3-T1. Electronically signed by: Nick Ruiz MD Efraín Garcia MD IMG XR PROCEDURES Fi nal Result from Last 3 Months Insurance [facility] MEDICARE ADVANTAGE MEDICARE ADVANTAGE MEDICARE ADVANTAGE Advance Directives For more information, please contact: [phone] * Full Code (Latest Code Status on File) Date Activated Date Inactivated Comments 07/24/2024 5:15 PM 07/28/2024 8:40 PM * Full Code Date Activated Date Inactivated Comments 03/06/2018 7:28 PM 03/12/2018 3:41 PM * Full Code Date Activated Date Inactivated Comments 03/05/2018 12:43 PM 03/05/2018 4:31 PM * Full Code Date Activated Date Inactivated Comments 01/20/2018 10:20 AM 01/24/2018 3:29 PM * Full Code Date Activated Date Inactivated Comments 01/09/2018 9:34 AM 01/10/2018 12:26 PM Care Teams Meat Boner Relationship Specialty Start Date End Date Concetta Mera MD [address] [facility] [address] [place] [address] PCP - General Internal Medicine 12/31/17 Efraín Garcia MD [address] [facility] [address] [place] [address] Consulting Physician Orthopedic Surgery 07/28/24
--- OUTSIDE RECORDS SUMMARY | 2024-11-09 10:38 | XMS_ITS | Clinical Summary ---
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 Gender Identity Not on file Sexual Orientation Not on file Last Filed Vital Signs Vital Sign Reading Time Taken Comments Blood Pressure 155/61 11/03/2018 12:41 PM CDT Pulse 67 11/03/2018 12:41 PM CDT Temperature 36.1 C (97 F) 11/03/2018 10:46 AM CDT Respiratory Rate 20 11/03/2018 12:41 PM CDT Oxygen Saturation 100% 11/03/2018 12:41 PM CDT Inhaled Oxygen Concentration - - Weight 70.3 kg (155 lb) 11/03/2018 10:46 AM CDT Height 147.3 cm (4' 10) 11/03/2018 10:46 AM CDT Body Mass Index 32.4 11/03/2018 10:46 AM CDT Plan of Treatment Health Maintenance Due Date Last Done Comments Hepatitis C 02/29/1963 Annual Medicare Wellness Visit 2011 Dexa Scan (General) 2011 Zoster Vaccines (2 of 3) 09/29/2014 08/04/2014 Pneumococcal Vaccine: 50+ Years (2 of 2 - PPSV23) 12/23/2015 12/22/2014 COVID-19 Vaccine ( season) 2023 03/12/2023, 03/08/2021, 05/08/2020, Additional history exists DTaP, Tdap and Td Vaccines (2 - Td or Tdap) 12/06/2027 12/05/2017 RSV Immunization or 60+ Years Completed 03/06/2023 Meningococcal B Vaccine Aged Out No l onger eligible based on patient's age to complete this topic Meningococcal Vaccine Aged Out No howard ghassan eligible based on patient's age to complete this topic RSV Immunizations Under 20 Months Aged Out No longer eligible based on patient's age to complete this topic Insurance [facility] Care Teams Summer Internship Relationship Specialty Start Date End Date Jitendra Mera MD [address] [address] PCP - General INTERNAL MEDICINE 10/12/20
== END 2024-11-09 10:09 | disposition home or self-care (01) ==
LOC: ANHFOHIMG 10:11
PROVIDERS: PCP Internal Medicine; Visit Provider Internal Medicine
DX: Z78.0 Asymptomatic menopausal state (principal); M85.88 Other specified disorders of bone density and structure, other site; M85.851 Other specified disorders of bone density and structure, right thigh
CPT/HCPCS: 77080